=== PATIENT | female | born 2000 | race Hispanic/Latino ===

== ENCOUNTER 2020-11-02 18:42 | Observation (INO) | payer BC, SELFPAY ==
--- NOTE | ~2020-11-02 | CT_ITS ---
EXAMINATION: CT abdomen pelvis w con EXAM DATE: 11/02/2020 19:42 INDICATION: abd pain. TECHNIQUE: Spiral CT of the abdomen and pelvis was performed following intravenous injection of 100 m L Omnipaque 350. Axial, coronal and sagittal images were reviewed. The dose-length product (DLP) fo r this examination was 1585.31 mGy-cm. The exposure was tailored according to patient size (auto mA exposure control), and iterative reconstruction (ASIR) was used as additional dose reduction techniqu e. There is no prior study for comparison. FINDINGS: The liver, spleen, adrenal glands and pancreas are unremarkable. Gallbladder is unremarkab le. No biliary obstruction. Portal and splenic veins are patent. Kidneys enhance symmetrically. T here is no hydronephrosis. The uterus is unremarkable. The bladder is unremarkable. There is no retroperitoneal or pelvic lymphadenopathy. Tubular structure appears to be appendix arising from the cecal base measuring 1.2 cm maximal diamete r with mild adjacent fat stranding. Probable acute uncomplicated appendicitis. No appendicolith or fl uid identified within the appendix. The stomach and small bowel are unremarkable. There is expected amount of colonic stool. No free i ntraperitoneal gas. The heart is normal in size. There are no pericardial or pleural effusions. T he lung bases are unremarkable. There are no osteoblastic or osteolytic lesions identified. 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 IMPRESSION: 1. Probable acute uncomplicated appendicitis. Reviewed, dictated and finalized at location A. ERATIVE EDUCATION DIRECTOR
[2020-11-02 18:46] VITALS: BP 145/97; PULSE 89; RESP 16; TEMP 36.3; O2SAT 100
--- NOTE | 2020-11-02 19:01 | ED.GENADULT ---
HPI - General Adult General Chief complaint: Abdominal Pain Stated complaint: stomach pain for two days Time Seen by Provider: 11/02/20 18:49 Source: RN notes reviewed History of Present Illness HPI narrative: Patient presents to emergency department from home for abdominal pain. Patient states pain began yesterday's initially located diffusely throughout the abdomen is now located in the right lower and upper quadrant described as aching in nature associated nausea vomiting and diarrhea. States she last took pain medication approximately 9 this morning she denies any fever chills chest pain shortness of breath or any other symptoms denies any chance of Related Data Home Medications Medication Instructions Recorded Confirmed No Home Medications 11/02/20 11/02/20 Allergies Allergy/AdvReac Type Severity Reaction Status Date / Time codeine AdvReac Mild NAUSEA Verified 11/02/20 18:55 Review of Systems Review of Systems: Narrative: Gen.: Denies fevers or chills ENT: Denies congestion Respiratory: Denies shortness of breath or cough CV: Denies chest pain or palpitations GI: See HPI denies burning, urgency, frequency or hematuria Musculoskeletal: Denies back pain or muscle pain Neuro: Denies numbness, tingling, weakness or focal weakness Skin: Denies rash Except as documented, all other systems reviewed and negative PMFSH Past Medical History Medical History (Updated 11/02/20 @ 20:31 by Alexx Velásquez DO) Anxiety Patient denies significant medical history Social History Social History (Updated 11/02/20 @ 19:02 by Alexx Velásquez DO) Smoking status: Never smoker Gender identity (if verbalized by the patient): Female Exam Narrative: Exam Narrative: APPEARANCE: No acute distress, nontoxic, resting in bed EYES: EOMI HEENT: Normocephalic, atraumatic, OMM RESPIRATORY: No respiratory distress Clear to auscultation bilaterally with no rhonchi wheezing or rales. CARDIOVASCULAR: Regular rate and rhythm without murmurs rubs or gallops. ABDOMINAL: Soft, nondistended tender palpation right upper quadrant right lower quadrant no tenderness left upper quadrant left lower quadrant no rebound or guarding MUSCULOSKELETAl: Moves all extremities. No clubbing, cyanosis or edema. NEURO: Awake and alert. Following commands, speech normal, no focal deficits SKIN:: Warm, dry. No rashes lesions or abrasions PSYCHIATRIC: Normal affect/mood, Course Course Emergency Course: Called and discussed with Dr. Lombardo presentation work-up agrees with admission to his service with patient started on Zosyn at this time plan for OR tomorrow Discussed with patient and family results of workup and diagnosis. Discussed need for admission. Patient and family understand and agree to current treatment plan Vital Signs Vital signs: Vital Signs Temperature 97.4 F L 11/02/20 18:46 Pulse Rate 89 11/02/20 18:46 Respiratory Rate 16 11/02/20 18:46 Blood Pressure 145/97 H 11/02/20 18:46 Pulse Oximetry 100 11/02/20 18:46 Temperature 97.4 F L 11/02/20 18:46 Pulse Rate 89 11/02/20 18:46 Respiratory Rate 16 11/02/20 18:46 Blood Pressure 145/97 H 11/02/20 18:46 Pulse Oximetry 100 11/02/20 18:46 Medical Decision Making Vital Signs Vital Signs: Vital Signs Temperature 97.4 F L 11/02/20 18:46 Pulse Rate 89 11/02/20 18:46 Respiratory Rate 16 11/02/20 18:46 Blood Pressure 145/97 H 11/02/20 18:46 Pulse Oximetry 100 11/02/20 18:46 Temperature 97.4 F L 11/02/20 18:46 Pulse Rate 89 11/02/20 18:46 Respiratory Rate 16 11/02/20 18:46 Blood Pressure 145/97 H 11/02/20 18:46 Pulse Oximetry 100 11/02/20 18:46 Lab Data Result diagrams: 11/02/20 18:58 11/02/20 18:58 Labs: Lab Results 11/02/20 11/02/20 11/02/20 Range/Units 18:58 18:58 18:58 WBC 19.3 H (4.5-10.0) K/mm3 RBC 4.97 (4.2-5.4) M/mm3 Hgb 15.3 H (12.0-15.0) g/dL Hct
[2020-11-02 19:03] LABS: Basophils Percent Auto 0.2 % (0.2-1.2); Eosinophils Percent Auto 0.2 % (0-4.4); Hemoglobin 15.3 g/dL (12.0-15.0); Immature Granulocyte Absolute 0.09 K/mm3 (0.00-0.031); Immature Granulocyte Percent A 0.5 % (0-0.5); Lymphocytes Absolute Auto 3.74 K/mm3 (0.9-3.2); Lymphocytes Percent Auto 19.4 % (18.3-44.2); Mean Corpuscular Hemoglobin 30.8 pg (26-34); Mean Corpuscular Volume 90.5 fl (80-100); Mean Platelet Volume 10.8 fl (7.4-10.4); Monocytes Percent Auto 5.3 % (2.6-8.5); Neutrophils Absolute Auto 14.4 K/mm3 (1.3-6.7); Neutrophils Percent Auto 74.4 % (45.5-73.1); Platelet Count Result 276 k/mm3 (150-375); Red Blood Count 4.97 M/mm3 (4.2-5.4); Red Cell Distribution Width 12.3 % (11.5-14.5); White Blood Count 19.3 K/mm3 (4.5-10.0)
[2020-11-02] MEDS: SODIUM CHLORIDE 0.9% IV 1,000 ML 999 ML IV CONT (19:06)
[2020-11-02] MEDS: KETOROLAC 30 MG/ML VIAL (*BKC) IV PUSH (19:06)
[2020-11-02 19:08] LABS: Add Urine Microscopic? YES; Appearance Urine Cloudy (Clear); Bacteria Urine Trace /hpf; Bilirubin Urine Negative (Negative); Blood Urine 1+ (Negative); Color Urine Yellow (Yellow); Glucose Urine UA Negative (Negative); Ketones Urine 1+ mg/dL (Negative); Leukocyte Esterase Ur 2+ LEU/UL (Negative); Mucus Urine Few /lpf; Nitrate Urine Negative (Negative); Protein Urine 2+ mg/dL (Negative); Squamous Epithelial Cell Urine Many /hpf (Few)
[2020-11-02 19:15] LABS: Alanine Aminotransferase 16 U/L (4-35); Albumin Level 4.4 g/dL (3.5-5.1); Alkaline Phosphatase 86 U/L (38-126); Anion Gap 9 mmol/L (8-16); Aspartate Amino Transferase 23 U/L (14-36); Bilirubin,Total 0.5 mg/dL (0.2-1.3); Blood Urea Nitrogen 9 mg/dL (7-17); Calcium 9.7 mg/dL (8.4-10.2); Carbon Dioxide 29 mmol/L (22-30); Chloride 103 mmol/L (98-107); Estimated CRCL calculation 161 ml/min; Estimated Glomerular Filt Rate > 60; Glucose 94 mg/dL (65-105); Lipase 65 U/L (23-300); Potassium 3.9 mmol/L (3.4-5.0); Sodium 141 mmol/L (137-145)
[2020-11-02 20:00] VITALS: BP 132/81; PULSE 71; RESP 16; O2SAT 100
[2020-11-02 20:28] VITALS: O2SAT 95
--- NOTE | 2020-11-02 20:28 | WPDANESEPP ---
Anes - Eval Pre Procedure Procedure: Lap Appy Date/Time: 11/02/20 20:28 Surgeon: Munira Preop Diagnosis: Acute appendicitis Pre Op Diagnosis: stomach pain for two days Patient Data Age: 20 Gender: F Height: 5 ft 5 in Weight: 145.2 kg Last Vital Signs Temp 97.4 F L 11/02/20 18:46 Pulse 89 11/02/20 18:46 Resp 16 11/02/20 18:46 BP 145/97 H 11/02/20 18:46 Pulse Ox 100 11/02/20 18:46 Allergies Allergy/AdvReac Type Severity Reaction Status Date / Time codeine AdvReac Mild NAUSEA Verified 11/02/20 18:55 Home Medications Medication Instructions Recorded Confirmed Type No Home Medications 11/02/20 11/02/20 History Laboratory Tests 11/02/20 11/02/20 11/02/20 18:58 18:58 18:58 WBC 19.3 K/mm3 H K/mm3 (4.5-10.0) RBC 4.97 M/mm3 M/mm3 (4.2-5.4) Hgb 15.3 g/dL H g/dL (12.0-15.0) Hct 45.0 % % (37.0-47.0) MCV 90.5 fl fl (80-100) MCH 30.8 pg pg (26-34) MCHC 34.0 g/dl g/dl (32-36) RDW 12.3 % % (11.5-14.5) Plt Count 276 k/mm3 k/mm3 (150-375) MPV 10.8 fl H fl (7.4-10.4) Immature Gran % (Auto) 0.5 % % (0-0.5) Neut % (Auto) 74.4 % H % (45.5-73.1) Lymph % (Auto) 19.4 % % (18.3-44.2) Chilton % (Auto) 5.3 % % (2.6-8.5) Eos % (Auto) 0.2 % % (0-4.4) Baso % (Auto) 0.2 % % (0.2-1.2) Lymph # (Auto) 3.74 K/mm3 H K/mm3 (0.9-3.2) Chilton # (Auto) 1.0 K/mm3 H K/mm3 (0.1-0.6) Eos # (Auto) 0.0 K/mm3 K/mm3 (0-0.3) Baso # (Auto) 0.0 K/mm3 K/mm3 (0.0-0.1) Abs Immat Gran (auto) 0.09 K/mm3 H K/mm3 (0.00-0.031) Absolute Neuts (auto) 14.4 K/mm3 H K/mm3 (1.3-6.7) Absolute Nucleated RBC 0.0 K/mm3 K/mm3 (0.0-0.012) Nucleated RBC % 0.0 % % (0.0-0.2) Sodium 141 mmol/L mmol/L (137-145) Potassium 3.9 mmol/L mmol/L (3.4-5.0) Chloride 103 mmol/L mmol/L (98-107) Carbon Dioxide 29 mmol/L mmol/L (22-30) Anion Gap 9 mmol/L mmol/L (8-16) BUN 9 mg/dL mg/dL (7-17) Creatinine 0.70 mg/dL mg/dL (0.7-1.0) Estim Creat Clear Calc 161 ml/min ml/min Estimated GFR > 60 (59 - ) Glucose 94 mg/dL mg/dL (65-105) Calcium 9.7 mg/dL mg/dL (8.4-10.2) Total Bilirubin 0.5 mg/dL mg/dL (0.2-1.3) AST 23 U/L U/L (14-36) ALT 16 U/L U/L (4-35) Alkaline Phosphatase 86 U/L U/L (38-126) Total Protein 9.0 g/dL H g/dL (6.3-8.2) Albumin 4.4 g/dL g/dL (3.5-5.1) Lipase 65 U/L U/L (23-300) Urine Color Yellow (Yellow) Urine Appearance Cloudy H (Clear) Urine pH 5.0 (5.0-9.0) Ur Specific Eucha 1.030 (1.001-1.035) Urine Protein 2+ mg/dL H mg/dL (Negative) Urine Glucose (UA) Negative mg/dL mg/dL (Negative) Urine Ketones 1+ mg/dL H mg/dL (Negative) Ur Blood (Man) 1+ H (Negative) Urine Nitrate Negative (Negative) Urine Bilirubin Negative (Negative) Urine Urobilinogen 2.0 mg/dL H mg/dL (<2.0) Leukocyte Esterase Rfl 2+ LUH/UL H LUH/UL (Negative) Urine RBC 3-5 /hpf H /hpf (0-2) Urine WBC 10-15 /hpf H /hpf Ur Squamous Epith Cells Many /hpf H /hpf (Few) Urine Bacteria Trace /hpf /hpf Urine Mucus Few /lpf H /lpf Patient hx anesthesia problems: none Family hx anesthesia problems: none PMFSH Past Medical History Medical History (Updated 11/02/20 @ 20:29 by Eric Swain CRNA) Anxiety Patient denies significant medical history Social History Social History (Updated 11/02/20 @ 19:02 by Alxex Velásquez, ) Smoking status: Never smoker Gender identity (if verbalized by the patient): F
[2020-11-02 21:30] VITALS: BP 129/83; PULSE 53; RESP 18; O2SAT 100
[2020-11-02] MEDS: MORPHINE SULFATE (*CRX) 4 MG/ML INJ IV PUSH ×2 (21:48→23:54)
--- NOTE | 2020-11-02 22:24 | ADMGEN ---
This patient, Catie Molina, was admitted to 2 Medical Room 257-01. Patient/family oriented to hospital policies and general routines including ID bracelet, bed and alarms, visiting hours, pain management, procedures, bathroom and other care routines, personal items, smoking policy, room service/diet, and visiting hours. Information on how to activate the Rapid Response Team has been discussed. Patient/Family are encouraged to report perceived risks to care and to ask questions if they do not understand what they are told or what they should do.
[2020-11-02 22:45] VITALS: BP 107/60; PULSE 56; RESP 20; TEMP 36.3; O2SAT 99; BMI 53.1
[2020-11-02] MEDS: SODIUM CHLORIDE 0.9% IV 1,000 ML 125 ML IV CONT (22:58)
[2020-11-03] VITALS (12 sets, daily range): BP systolic 89–130; BP diastolic 51–90; PULSE 54–104; RESP 13–20; TEMP 36.1–36.8; O2SAT 91–100
[2020-11-03 05:46] LABS: Basophils Percent Auto 0.3 % (0.2-1.2); Eosinophils Absolute Auto 0.1 K/mm3 (0-0.3); Eosinophils Percent Auto 1.2 % (0-4.4); Hematocrit 39.4 % (37.0-47.0); Hemoglobin 13.2 g/dL (12.0-15.0); Immature Granulocyte Absolute 0.05 K/mm3 (0.00-0.031); Immature Granulocyte Percent A 0.4 % (0-0.5); Lymphocytes Absolute Auto 2.57 K/mm3 (0.9-3.2); Lymphocytes Percent Auto 21.9 % (18.3-44.2); Mean Corpuscular HGB Conc 33.5 g/dl (32-36); Mean Corpuscular Hemoglobin 30.4 pg (26-34); Mean Corpuscular Volume 90.8 fl (80-100); Mean Platelet Volume 10.9 fl (7.4-10.4); Monocytes Percent Auto 8.5 % (2.6-8.5); Neutrophils Absolute Auto 7.9 K/mm3 (1.3-6.7); Neutrophils Percent Auto 67.7 % (45.5-73.1); Platelet Count Result 239 k/mm3 (150-375); Red Blood Count 4.34 M/mm3 (4.2-5.4); Red Cell Distribution Width 12.3 % (11.5-14.5); White Blood Count 11.7 K/mm3 (4.5-10.0)
[2020-11-03] MEDS: SODIUM CHLORIDE 0.9% IV 1,000 ML 125 ML IV CONT (07:25)
[2020-11-03 08:40] LABS: Anion Gap 5 mmol/L (8-16); Blood Urea Nitrogen 9 mg/dL (7-17); Calcium 8.7 mg/dL (8.4-10.2); Carbon Dioxide 30 mmol/L (22-30); Chloride 105 mmol/L (98-107); Estimated CRCL calculation 155 ml/min; Estimated Glomerular Filt Rate > 60; Glucose 80 mg/dL (65-105); Potassium 3.8 mmol/L (3.4-5.0); Sodium 140 mmol/L (137-145)
[2020-11-03] MEDS: LACTATED RINGERS 1,000 ML 30 ML IV CONT ×2 (11:18→13:18)
--- NOTE | 2020-11-03 11:47 | PM.IMHP ---
H&P: HPI History of Present Illness Date/Time: 11/03/20 11:47 Chief complaint: appendicitis Narrative: Catie Molina is a 20 year old female who presented to the emergency department last night with right lower quadrant pain. She states that about 2 days ago she began experiencing some generalized cramping abdominal pain. This then localized to the right lower quadrant. She was experiencing some nausea and vomiting as well. She denies any change in bowel habits. She has never experienced symptoms like this in the past. Review of Systems Review of Systems: All systems reviewed & are unremarkable except as noted in HPI and below Constitutional: Constitutional: Denies chills and Denies fever(s) Eyes: Eyes: Denies change in vision ENT: Denies hearing loss, Denies neck pain and Denies sore throat Cardiovascular: Cardiovascular: Denies chest pain and Denies dyspnea Respiratory: Respiratory: Denies cough, Denies dyspnea and Denies wheezing Gastrointestinal: Gastrointestinal: Reports as per HPI Genitourinary: Genitourinary: Denies hematuria and Denies dysuria Musculoskeletal: Musculoskeletal: Denies arthralgias, Denies joint swelling and Denies neck pain Allergic/Immunologic: Allergic/Immunologic: Denies wheezing PMFSH Past Medical History Medical History Anxiety Patient denies significant medical history Family History Family History Sibling Asthma Grandparent Diabetes mellitus Grandparent History of blood clots Mother Hypertension Grandparent Hypertension Other Prostate carcinoma Social History Social History Smoking status: Never smoker Alcohol intake: never Substance use: never Substance use type: does not use Gender identity (if verbalized by the patient): Female Spiritual care concerns: No Meds Home Medications and Allergies Home Medications Medication Instructions Recorded Confirmed Type No Home Medications 11/02/20 11/02/20 History Allergies Allergy/AdvReac Type Severity Reaction Status Date / Time codeine AdvReac Mild NAUSEA Verified 11/02/20 18:55 Vital Signs Vital Signs - 24 hr 11/02/20 18:46 11/02/20 20:00 11/02/20 21:30 Temperature 36.3 C L Pulse Rate 89 71 53 L Respiratory Rate 16 16 18 Blood Pressure 145/97 H 132/81 129/83 Pulse Oximetry 100 100 100 11/02/20 22:45 11/03/20 06:00 11/03/20 10:48 Temperature 36.3 C L 36.2 C L 36.5 C Pulse Rate 56 L 54 L 70 Respiratory Rate 20 20 18 Blood Pressure 107/60 105/61 130/90 Pulse Oximetry 99 98 100 Exam Const: General: alert; No acute distress Orientation/consciousness: patient oriented x3 Limitations: no limitations HENMT: Head: normocephalic and atraumatic Ears: hearing grossly normal bilaterally General nose exam: Normal external nose present and Normal nares present Mouth: Yes Normal oral and palatal mucosa present and Yes moist mucous membranes Eyes: General: appearance normal, both eyes and all related structures Conjunctivae: conjunctivae normal Sclera: sclerae normal Pupils: Equal, round and reactive pupils present EOM: EOMs intact bilaterally Neck: Neck: normal visual inspection, full ROM, no lymphadenopathy, supple and no JVD Lymphatic: no lymphadenopathy noted Chest: Chest palpation & inspection: normal inspection of the chest Resp: Effort & Inspection: normal respiratory effort and able to speak in complete sentences Auscultation: clear to auscultation bilaterally Percussion: percussion normal Cardio: Jugular venous distension: no JVD Rate: regular rate Rhythm: regular rhythm Heart sounds: S1 normal heart sound present and S2 normal heart sound present Peripheral pulses: Peripheral pulses 2+ throughout GI: Inspection: normal to inspection and obesity GI Palp: Yes abdominal tenderness, Yes
--- NOTE | 2020-11-03 11:51 | WPDHPUPDATE1 ---
History and Physical Update Update Date/Time: 11/03/20 11:51 History and Physical has been reviewed, including an updated exam of the patient. There are NO changes in the patient's condition. Risks, benefits, and alternatives have been discussed and questions answered. Patient agrees to proceed with procedure.
--- NOTE | 2020-11-03 11:56 | SUR.PREOP ---
Up to bathroom.
--- NOTE | 2020-11-03 11:58 | WPDANESEFPP ---
Anes - Eval Final PreProcedure Day of Procedure 11/03/20 11:58 Patient weight: super morbidly obese Heart: regular rate and rhythm Lungs: clear to auscultation and normal air movement Airway: Mallampati scale class II Neurological: alert and oriented Last oral intake: >/= 8 hours ASA classification: III Emergent: no Anesthetic plan: proceed Anesthesia type and monitoring: general ETT and standard monitoring Informed Consent: The patient's anesthetic plan and its attendant risks and benefits were discussed with the patient/family/POA. Questions were solicited and answers provided to the satisfaction of the patient/family/POA.
--- NOTE | 2020-11-03 13:08 | PM.PROC ---
Procedure Note - Detailed Date of procedure: 11/03/20 Pre-op diagnosis: Acute appendicitis Post-op diagnosis: same Procedure performed: Laparoscopic Appendectomy Description of procedure: Procedure as well as risks, benefits, and alternatives were explained to the patient. The patient agreed to proceed. Written consent was obtained and placed in chart prior to procedure. The patient was brought back to surgical suite. She was placed supine on operating table. Time-out was done to confirm the patient and procedure. The patient was then intubated by the Anesthesia Department. Her abdomen was prepped and draped in sterile fashion using chlorhexidine prep. A 5 mm incision was made just to the left of the patient's umbilicus and a 5 mm Optiview trocar was advanced through the abdominal layers under direct visualization. Once inside the peritoneal cavity, carbon dioxide insufflation was used to create a pneumoperitoneum. The camera was inserted and the abdomen was inspected. No immediate abnormalities were identified. The patient was then placed in slight Trendelenburg position and rotated to the left. A 5 mm incision was made in the suprapubic region in midline and a 5 mm trocar was inserted under direct visualization. A 12 mm incision was made in the left lower quadrant and a 12 mm trocar was inserted under direct visualization. The right lower quadrant was carefully inspected. The cecum was identified and then this was traced back to the appendix. The appendix was identified and grasped at the mesoappendix and lifted anteriorly. Careful blunt dissection was carried out at the base of the appendix through the mesoappendix using a [place] grasper. An Endo-GENEVIEVE 45 mm blue load stapler was then advanced across the base of the appendix and clamped and fired. A white reload was then clamped across the mesoappendix and fired. This freed up our appendix completely. It was then placed in an EndoCatch bag and removed through the left lower quadrant port. The staple lines were then inspected. Hemostasis appeared adequate and the staple lines appeared secure. The area was then irrigated with sterile saline. The pelvis was then carefully inspected and irrigated with sterile saline as well and the remainder of the abdomen was carefully inspected. The patient was then flattened out in bed. One final inspection was made around the abdominal cavity and no other abnormalities were seen. The left lower quadrant port was removed and a Anshul-Danielito cone was used to approximate the fascia with a 0 Vicryl simple interrupted suture. The remaining ports were then removed under direct visualization. The camera was removed and the pneumoperitoneum was released. 0.5% bupivacaine with epinephrine was infiltrated locally around each of the incisions. The skin of the incisions was then approximated using 4-0 Monocryl subcuticular suture and Exofin glue was applied on top. The patient was then awakened from anesthesia, extubated, and transferred to Recovery. Anesthesia: GETA and local (0.5% bupivicaine with epi) Surgeon: Mil Lombardo DO Estimated blood loss (mL): 10 Pathology: yes (Appendix) Complications: No immediate complications Condition: stable Disposition: floor Findings: This is a 20-year-old woman who presented to the emergency department last night with complaints of right lower quadrant abdominal pain for the past couple days. She was noted to have an elevated white blood count, and CT of her abdomen and pelvis showed evidence of acute appendicitis. Discussions were made with the patient about treatment options decision was made to proceed with urgent laparoscopic appendectomy, possible open. She was started on Zosyn in the emergency department. Laparoscopic appendectomy was performed. The appendix appeared dilated and inflamed but there was no evidence perforation or abscess. The remainder of the abdomen appeared normal. The patient is morbidly obese a
[2020-11-03] MEDS: fentaNYL CITRATE INJ (*CRX) 100 MCG/2 ML VIAL 25 MCG IV PUSH ×4 (13:27→13:50)
[2020-11-03] MEDS: HYDROcodone/acetaminophen (*CRX) 7.5-325 MG TABLET 1 TAB PO ×2 (14:41→19:56)
[2020-11-03] MEDS: MORPHINE SULFATE (*CRX) 2 MG/ML INJ IV PUSH (17:18)
[2020-11-03] MEDS: IBUPROFEN 600 MG TABLET PO (23:24)
[2020-11-04] MEDS: HYDROcodone/acetaminophen (*CRX) 7.5-325 MG TABLET 1 TAB PO (01:01)
[2020-11-04 06:00] VITALS: BP 109/54; PULSE 53; RESP 20; TEMP 36.1; O2SAT 98
[2020-11-04] MEDS: HYDROcodone/acetaminophen (*CRX) 5-325 MG TABLET 1 TAB PO (06:25)
--- NOTE | 2020-11-04 09:00 | PM.DS ---
DS: Admitting Diagnosis Admitting Diagnosis Admitting Diagnosis: Acute appendicitis DS: Discharge Diagnosis Discharge Diagnosis (1) Acute appendicitis: Qualifiers: Acute appendicitis type: with localized peritonitis Appendicitis abscess presence: unspecified whether abscess present Appendicitis gangrene presence: unspecified whether gangrene present Appendicitis perforation presence: unspecified whether perforation present Qualified Code(s): K35.30 - Acute appendicitis with localized peritonitis, without perforation or gangrene Code(s): K35.80 - Unspecified acute appendicitis Status: Acute (2) BMI 50.0-59.9, adult: Code(s): Z68.43 - Body mass index [BMI] 50.0-59.9, adult Status: Acute DS: Summary Hospital Course Reason for hospitalization: acute appendicitis Hospital Course: this is a 20-year-old woman who presented to the emergency department on 11/02/2020 with right lower quadrant abdominal pain. Workup in the emergency department showed evidence of acute appendicitis. She was started on IV Zosyn and was admitted to the hospital. On 11/03/2020 she underwent laparoscopic appendectomy. Surgery was uncomplicated and she was returned to the surgical floor postoperatively. Her diet and activity were gradually advanced as tolerated. Pain was difficult to control initially on 11/03, but on postop day 1 she was feeling much better. Her pain was well controlled and she was ambulating without much difficulty. She was discharged on 11/04. Status at Discharge Functional status at discharge: independent ambulation Overall status at discharge: patient is progressing back to baseline Time Spent with Patient Time attestation: Total time spent providing and/or coordinating discharge services: Time spent: Less than 30 minutes Exam GI: Inspection: incision ( Intact with glue) DS: Data Data Completed and Pending Completed studies during hospitalization: Pending at discharge 11/03/20 12:37 Surgical [PTH] Routine Imaging Radiologist's impression: ITS Impressions Abdomen/Pelvis CT 11/02/20 19:53 IMPRESSION: 1. Probable acute uncomplicated appendicitis. Discharge Plan Discharge Attending physician on discharge: Mil Le Consulting providers: Marcelo Liz Discharging Clinician: Mil Le Anticipated Discharge Date/Time: 11/03/20 16:00 Patient Disposition: Home, Self-Care Activity: other - see discharge instructions Diet: other - see discharge instructions Wound Care Instructions: other - see discharge instructions Discharge Instructions: DISCHARGE INSTRUCTION SHEET FOR HERNIA, GALLBLADDER AND APPENDIX SURGERIES DR. LE PATIENT TO TAKE HOME 1. May shower in 24 hours, no soaking in bath x 2weeks. 2. Call office for: Wound increasingly painful or bleeding Vomiting Fever of greater than 101 degrees 3. If no bowel movement for three days, take 1 oz. (30 ml) Milk of Magnesia or MiraLax 17g 1 to 2 times daily. 4. No heavy lifting > 10-15 pounds for 2 weeks. 5. No driving for 3 days or while taking narcotic pain medications. 6. Ice to surgical site for 48 hours (30 min on, then 30 min off). 7. Up walking 10-30 minutes three times per day. 8. Resume previous home medications. 9. Follow-up 10-14 days in office for wound check or as previously scheduled. ([phone]) 10. Oral pain medications prescription to be sent to pharmacy. Take Tylenol 500mg every 6 hours and Ibuprofen 600mg every 6 hours for the first 2 days, then as needed. 11. NUTRITION: Start out by drinking fluids and increase your diet as tolerated. If you experience nausea, try dry toast, crackers, and 7-UP. If nausea or vomiting persists, contact your surgeon?s office.
== END 2020-11-04 10:36 | disposition home or self-care (01) ==
LOC: ANHED 20:31 → ANH2MED 21:44
PROVIDERS: Admitting Provider Surgery; Emergency Provider Emergency Medicine; Visit Provider Surgery
PROC: 0DTJ4ZZ Resection of Appendix, Percutaneous Endoscopic Approach (ICD-10-PCS; CPT 44970; principal; 2020-11-03 12:30)
DX: K35.80 Unspecified acute appendicitis (principal); E66.01 Morbid (severe) obesity due to excess calories; Z68.43 Body mass index [BMI] 50.0-59.9, adult
CPT/HCPCS: 44970; 36415; 74177; 80048; 80053; 81001; 81025; 83690; 85025; 87086; 87088; 88304; 96361; 96365; 96375; 96376; 99285; A9270; G0378; J0330; J1100; J1885; J2270; J2405; J2543; J2704; J3010; J7030; J7120; Q9967

== ENCOUNTER 2022-09-18 08:41 | Emergency (ER) | payer BC, SELFPAY ==
--- NOTE | 2022-09-18 08:44 | ED.SKABFB ---
HPI - Skin/Abscess/Foreign Bdy General Chief complaint: Skin/Abscess/Foreign Body Stated complaint: Bump on Back of Neck Time Seen by Provider: 09/18/22 08:43 Source: patient Mode of arrival: ambulatory Limitations: no limitations History of Present Illness HPI narrative: Catie is a 22-year-old female patient presenting to clinic today with complaints of a bump on the back of her neck x 1-2 weeks. She reports that the bump is becoming bigger and more painful. She is having problems with turning her neck side to side due to the discomfort. She denies any fever or chills. Related Data Allergies Allergy/AdvReac Type Severity Reaction Status Date / Time codeine AdvReac Mild NAUSEA Verified 11/17/20 09:45 Review of Systems Review of Systems: Pertinent positives per HPI. Patient denies any fever, chills, rash, headache, visual changes, dizziness, cough, runny nose, sore throat, shortness of breath, chest pain, palpitations, nausea, vomiting, diarrhea, constipation, abdominal pain, or any urinary issues. PMFSH Past Medical History Medical History Anxiety Patient denies significant medical history Surgical History Surgical History History of laparoscopic appendectomy 11/03/20 Family History Family History Sibling Asthma Grandparent Diabetes mellitus Grandparent History of blood clots Mother Hypertension Grandparent Hypertension Other Prostate carcinoma Social History Social History Smoking status: Never smoker Alcohol intake: never Substance use: never Substance use type: does not use Gender identity (if verbalized by the patient): Female Spiritual care concerns: No Comments At the time of my signature, I reviewed and agree with the nursing past medical, surgical, social, and family history. There is no relevant family history pertinent to the patient complaint. Exam Narrative: General: Well-developed, morbidly obese, in no apparent distress Head: Normocephalic, atraumatic. Cardio: Regular rate and rhythm, s1 and s2 normal, no murmur appreciated. Resp: Clear to auscultation bilaterally, no rhonchi, rales, wheezing or rubs. Integumentary: [place], warm, and dry, 6 x 3 cm fluctuant abscess to the base of the posterior neck- redness and swelling visualized and very tender to palpation Course Course Emergency Course: Portions of this record may have been created with voice recognition software. Level of Care: Express Care Visit Vital Signs Vital signs: Vital Signs Temperature 36.6 C 09/18/22 08:53 Pulse Rate 73 09/18/22 08:53 Respiratory Rate 16 09/18/22 08:53 Blood Pressure 130/91 H 09/18/22 08:53 Pulse Oximetry 99 09/18/22 08:53 Oxygen Delivery Room Air 09/18/22 08:53 Temperature 36.6 C 09/18/22 08:53 Pulse Rate 73 09/18/22 08:53 Respiratory Rate 16 09/18/22 08:53 Blood Pressure 130/91 H 09/18/22 08:53 Pulse Oximetry 99 09/18/22 08:53 Oxygen Delivery Room Air 09/18/22 08:53 Vital signs reviewed Procedures Abscess I/D neck: Date of Incision: 09/18/22 Time of Incision: 09:00 Local Anesthetic: lidocaine 1% and with epi Amount of anesthesia used (mL): 2 Technique: incised with #11 blade and probed loculations Amount of fluid expressed (mL): 10 Irrigation: Yes Packing used?: iodoform ( quarter inch) I&D Results: Pus and Blood Abcess I&D Additional Comments: Verbal consent obtained for incision and drainage. Risk and benefits explained and patient voiced understanding. Area was cleansed with betadine. Area was prepped and draped using sterile technique. 25 gauge needle was then used to instill (2) ml of lidocaine with epi into the
[2022-09-18 08:53] VITALS: BP 130/91; PULSE 73; RESP 16; TEMP 36.6; O2SAT 99
== END 2022-09-18 09:26 | disposition home or self-care (01) ==
LOC: EXPCOLL 08:46
PROVIDERS: Emergency Provider Nurse Practitioner Family
DX: L02.11 Cutaneous abscess of neck (principal)
CPT/HCPCS: 10061; 87070; 87075; 87076; 87077; 87185; 87205; 99213; G0463

== ENCOUNTER 2023-10-18 13:44 | Emergency (ER) | payer BC, SELFPAY ==
[2023-10-18 13:54] VITALS: BP 121/92; PULSE 78; RESP 18; TEMP 36.4; O2SAT 98
[2023-10-18 13:55] VITALS: BP 121/92; PULSE 78; RESP 18; TEMP 36.4; O2SAT 98
--- NOTE | 2023-10-18 14:05 | ED.ABDPAIN ---
HPI - Abdominal Pain General Chief Complaint: Abdominal Pain Stated Complaint: Abdominal Pain Time Seen by Provider: 10/18/23 14:06 Source: patient and RN notes reviewed Mode of arrival: ambulatory Limitations: no limitations History of Present Illness HPI narrative: 23 y/o female presented for c/o diarrhea for 2 days. Reports abdominal cramping and frequent episodes of diarrhea. Symptoms worsened last night, stating she had cramping throughout the night. Only 2 episodes of diarrhea today, and stools are becoming more formed. Pt reports chronic frequent morning vomiting of mucous, and denies any change to vomiting. Reports normal po intake. Currently denies abdominal cramping or nausea, urinary complaints, fever or chills. Not taking anything for symptoms. Related Data Home Medications Medication Instructions Recorded Confirmed No Home Medications 10/18/23 10/18/23 Allergies Allergy/AdvReac Type Severity Reaction Status Date / Time codeine AdvReac Mild NAUSEA Verified 10/18/23 13:55 Review of Systems Review of Systems: CONSTITUTIONAL: Denies body aches, fever, chills ENT: Denies rhinorrhea, congestion CARDIOVASCULAR: Denies chest pain, palpitations, or edema. RESPIRATORY: Denies cough or dyspnea. GASTROINTESTINAL: Endorses abdominal cramping nausea, diarrhea. Denies vomiting, hematochezia, melena, hematemesis GENITOURINARY: Denies dysuria, hematuria, or CVA tenderness. SKIN: Denies rash, itching, or wounds. MUSCULOSKELETAL: Denies back pain, joint pain, or myalgia. NEUROLOGIC: Denies headache, numbness, tingling, or weakness. All systems reviewed & are unremarkable except as noted in HPI and below PMFSH Past Medical History Medical History Anxiety Patient denies significant medical history Surgical History Surgical History History of laparoscopic appendectomy 11/03/20 Family History Family History Sibling Asthma Grandparent Diabetes mellitus Grandparent History of blood clots Mother Hypertension Grandparent Hypertension Other Prostate carcinoma Social History Social History Smoking status: Never smoker Alcohol intake: never Substance use: never Substance use type: does not use Gender identity (if verbalized by the patient): Female Spiritual care concerns: No Comments At time of signature, I have reviewed and agree with nursing past medical, surgical, social and family history unless otherwise noted. Please see nursing chart for further information. There is no relevant family history pertinent to the presenting complaint Exam Narrative: GENERAL: Well-appearing, and in no acute distress. EYES: EOMI. Conjunctivae normal. ENT: Mucous membranes pink and moist. CHEST: No respiratory distress. Clear to auscultation. HEART: Regular rate and rhythm. No murmur appreciated. Normal peripheral pulses. ABDOMEN: abd soft, large, nondistended, normal active bowel sounds. Tender abdomen to bilateral upper quadrants and epigastric area; No guarding, rebound tenderness, asymmetry or rigidity. No discoloration. Exam limited due to body habitus. EXTREMITIES: Normal range of motion. No edema. SKIN: Warm, dry, no rash. Capillary refill normal. Normal skin turgor. NEURO: No focal deficits. Alert and oriented x3. PSYCH: Normal affect. Course Course Emergency Course: Patient is aware of diagnosis, understands and agrees to treatment plan. Anticipatory guidance given. Patient agrees to follow-up as directed and is aware of reasons to seek care at the emergency department. Portions of this record may have been created with voice recognition software Level of Care: Express Care Visit Vital Signs Vital signs: Vital Signs Temperature 97.6 F 10/18/
== END 2023-10-18 14:30 | disposition home or self-care (01) ==
PROVIDERS: Emergency Provider Nurse Practitioner Family
DX: R19.7 Diarrhea, unspecified (principal)
CPT/HCPCS: 99213; G0463

== ENCOUNTER 2024-05-31 00:59 | Emergency (ER) | payer BC, SELFPAY ==
[2024-05-31 01:00] VITALS: BP 149/78; PULSE 78; RESP 18; TEMP 36.1; O2SAT 100
--- NOTE | 2024-05-31 01:51 | ED.EAR ---
HPI - Ear Problem General Chief complaint: Ear Stated complaint: moth stuck in right ear Time Seen by Provider: 05/31/24 01:41 History of Present Illness HPI Narrative: Patient is a 24-year-old female who presents ER with a foreign body in her right ear. She reports she was fighting off when it flew into her ear. She tried your UA did home and it would not come out. No pain. Muffled hearing. Related Data Home Medications Medication Instructions Recorded Confirmed No Home Medications 10/18/23 10/18/23 Allergies Allergy/AdvReac Type Severity Reaction Status Date / Time codeine AdvReac Mild NAUSEA Verified 05/31/24 01:04 Review of Systems Constitutional: Constitutional: Reports no additional constitutional complaints ENT: Denies dizziness Comments: Foreign body right ear PMFSH Past Medical History Medical History Anxiety Patient denies significant medical history Surgical History Surgical History History of laparoscopic appendectomy 11/03/20 Family History Family History Sibling Asthma Grandparent Diabetes mellitus Grandparent History of blood clots Mother Hypertension Grandparent Hypertension Other Prostate carcinoma Social History Social History Smoking status: Never smoker Alcohol intake: never Substance use: never Substance use type: does not use Gender identity (if verbalized by the patient): Female Spiritual care concerns: No Exam Narrative: GENERAL: Well-appearing, well-nourished, and in no acute distress. HEAD: Normocephalic, atraumatic. ENT: Mucous membranes moist. insect right ear canal. After removal TM and intact. Ear canal normal without bleeding. EXTREMITIES: Normal range of motion. No edema. NEURO: Alert and oriented x3. PSYCH: Normal mood and affect. Course Course Emergency Course: Month removed. Discharge home. Vital Signs Vital signs: Vital Signs Temperature 97.0 F L 05/31/24 01:00 Pulse Rate 78 05/31/24 01:00 Respiratory Rate 18 05/31/24 01:00 Blood Pressure 149/78 H 05/31/24 01:00 Pulse Oximetry 100 05/31/24 01:00 Temperature 97.0 F L 05/31/24 01:00 Pulse Rate 78 05/31/24 01:00 Respiratory Rate 18 05/31/24 01:00 Blood Pressure 149/78 H 05/31/24 01:00 Pulse Oximetry 100 05/31/24 01:00 Procedures FB Removal Ear Foreign Body #1: Foreign Body Removal Date: 05/31/24 Foreign Body Removal Time: 01:53 Location: ear canal (R) Foreign Body Suspected: insect TM intact pre-procedure: yes Foreign Body Removed: yes Foreign Body Removal Technique: irrigation (then grabbed with alligator forceps.) Tympanic Membrane Intact Post Procedure: Yes Patient Tolerated Procedure: well Complications: none Medical Decision Making Vital Signs Vital Signs: Vital Signs Temperature 97.0 F L 05/31/24 01:00 Pulse Rate 78 05/31/24 01:00 Respiratory Rate 18 05/31/24 01:00 Blood Pressure 149/78 H 05/31/24 01:00 Pulse Oximetry 100 05/31/24 01:00 Temperature 97.0 F L 05/31/24 01:00 Pulse Rate 78 05/31/24 01:00 Respiratory Rate 18 05/31/24 01:00 Blood Pressure 149/78 H 05/31/24 01:00 Pulse Oximetry 100 05/31/24 01:00 Discharge Plan Discharge Clinical Impression: Ear foreign body Patient Disposition: Home, Self-Care Condition: Stable Instructions: Ear Foreign Body (ED) Additional Instructions: You had a moth removed from your ear tonight. Return to the ER if you have any additional issues. Prescriptions: No Action No Home Medications Follow-up/Referrals: PHYSICIAN,INCUBATOR TENDER [Primary Care Provider] -
[2024-05-31 01:55] VITALS: BP 144/90; PULSE 71; RESP 16; O2SAT 100
== END 2024-05-31 02:19 | disposition home or self-care (01) ==
LOC: ANHED 02:03
PROVIDERS: Emergency Provider Emergency Medicine; PCP Emergency Medicine
DX: T16.1XXA Foreign body in right ear, initial encounter (principal); W44.F4XA Insect entering into or through a natural orifice, initial encounter
CPT/HCPCS: 69200; 99282

== ENCOUNTER 2025-07-15 17:13 | Emergency (ER) | payer BC, SELFPAY ==
--- OUTSIDE RECORDS SUMMARY | 2005-10-06 08:15 | XMS_ITS | Continuity of Care Document ---
Author Organization [facility] Address [address] [place] [address] [address] [place] [address] Phone Care Team Providers Care Computer Forensics Investigator Name Role Phone Yahaira Ayala Unavailable Unavailable Advance Directives Directive Yes / No Effective Date File Name No Information Encounters Encounter Description Practice Location Reason(s) For Visit Diagnoses Date Provider Providers Copied on Encounter [facility], [address] [place] [address] [address], [place], [place], [id number], [place] tel:[phone] [facility] No Information [address] [facility] [address] , [address], [place], [address], [place]. tel:[phone] Family History Family Member Type Diagnosis Age At Onset No Information Payers Payer name Insurance type Covered libertarian ID Authoriza tion(s) Medicaid [facility] [id number] Social History Type Description Quantity Date Captured Comments Sex Female Smoking Status No Information Chief Complaint And Reason For Visit No Information Reason For Referral Reason For Referral No Information History Of Present Illness Encounter Date Complaint History Of Prese nt Illness No Information Functional Status Date Functional Assessmen t No Information Instructions Date Instruction Additional Infor mation No Information Assessments Type Assessment Date No Information Patient Care Teams Name Effective Dates (start - stop) Status Members No Information
--- OUTSIDE RECORDS SUMMARY | 2005-10-06 08:15 | XMS_ITS | Continuity of Care Document ---
Author Organization [facility] Address [address] [place] [address] [address] [place] [address] Phone Care Team Providers Care Clay Temperer Name Role Phone Yahaira Ayala Unavailable Unavailable Advance Directives Directive Yes / No Effective Date File Name No Information Encounters Encounter Description Practice Location Reason(s) For Visit Diagnoses Date Provider Providers Copied on Encounter [facility], [address] [place] [address] [address], [place], [place], [id number], [place] tel:[phone] [facility] No Information [address] [facility] [address] , [address], [place], [address], [place]. tel:[phone] Family History Family Member Type Diagnosis Age At Onset No Information Payers Payer name Insurance type Covered libertarian ID Authoriza tion(s) Medicaid [facility], [facility] [id number] Social History Type Description Quantity Date Captured [...]
--- NOTE | ~2025-07-15 | CT_ITS ---
EXAMINATION: CT abdomen pelvis w con DATE: 07/15/2025 19:54 INDICATION: Abdominal pain and vomiting TECHNIQUE: Computed tomography (CT) of the abdomen and pelvis was performed with 100 mL Omnipaque-350 intravenous contrast. Automated exposure control and iterative reconstruction technique were employed. The dose-length product was 1671.52 mGy-cm. COMPARISON: 11/02/2020 FINDINGS: Lung bases are clear. Heart size normal. No pericardial or pleural effusion. Liver, gallbladder, spleen, pancreas, bilateral adrenal glands and left kidney are normal. 4 mm low-attenuation likely cyst at the lower pole the right kidney. Suture line along the tip the cecum and a few adjacent surgical clips consistent with prior appendectomy. Bowels are otherwise unremarkable with no obstruction. Decompressed bladder, uterus and bilateral adnexa are unremarkable. No free intraperitoneal gas or fluid. No pathologically enlarged abdominal or pelvic lymphadenopathy. Chronic mild anterior wedging at T9-T11. 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 IMPRESSION: 1. No acute intra-abdominal/pelvic process. Reviewed, dictated and finalized at location A.
--- OUTSIDE RECORDS SUMMARY | 2025-07-15 17:15 | XMS_ITS | Encounter Summary ---
Author Organization [facility] Health Address [address] [place] [address] Care Team Providers Care Hot Mill Roller Name Role Phone Sandy Farnsworth MD Primary Care Provider [phone] Sandy Farnsworth MD Primary Care Provider [phone] Sandy Farnsworth MD Unavailable [phone] Sandy Farnsworth MD Unavailable [phone] Charlotte Espitia MD Primary Care Provider [facility] Primary Care Provider + Charlotte Espitia MD Primary Care Provider [facility] Primary Care Provider + Encounter Details Date Type Department Care Team (Late st Contact Info) Description 07/27/2013 [facility] Outpatient Visit CG DEFAULT [address] [place] [address] Unknown, Provider Social History Tobacco Use Types Packs/Day Years Used Date Smoking Tobacco: Never Alcohol Use Standard Drinks/Week Comments No 0 (1 standard drink = 0.6 oz pur e alcohol) Comments No Sex and Gender Information Value Date Recorded Sex Assigned at Not on file 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 Gender Identity Not on file Sexual Orientation Not on file documented as of this encounter Plan of Treatment Not on file documented as of this encounter Visit Diagnoses Not on filedocumented in this encounter Additional Health Concerns Infection Onset Date Last Indicated Resolved Time COVID-19 Under Investigation 08/08/2023 08/08/2023 08/08/2023 2:26 PM CDT documented as of this encounter Care Teams Hot Mill Roller Relationship Specialty Start Date End Date Sandy Farnsworth MD [address] [place] [phone] PCP - General 09/03/10 11/03/20 Sandy Farnsworth MD [address] [place] [phone] PCP - General 11/04/20 08/07/23 Sandy Farnsworth MD [address] [place] [phone] PCP - Pediatrics 09/01/09 Charlotte Espitia MD [address] [place], [place] [phone] PCP - General Internal Medicine 08/08/23 10/17/23 Jena Gutierrez, THREAD MILLING MACHINE SET UP OPERATOR-MANAGER ELECTRICAL [address] [place] [phone] PCP - General Nurse Practitioner 10/18/23 11/06/23 Charlotte Espitia MD [address], [place] [phone] PCP - General Internal Medicine 11/07/23 04/02/24 Jena Gutierrez, THREAD MILLING MACHINE SET UP OPERATOR-MANAGER ELECTRICAL [address] [place] [phone] PCP - General Nurse Practitioner 04/03/24 Sandy Farnsworth MD [address] [phone] 11/04/20 documented as of this encounter
--- OUTSIDE RECORDS SUMMARY | 2025-07-15 17:15 | XMS_ITS | Encounter Summary ---
Author Organization [facility] Health Address [address] [facility] [place] [address] Care Team Providers Care Hatchery Supervisor Name Role Phone Sandy Farnsworth MD Primary Care Provider [phone] Sandy Farnsworth MD Primary Care Provider [phone] Sandy Farnsworth MD Unavailable [phone] Sandy Farnsworth MD Unavailable [phone] Charlotte Espitia MD Primary Care Provider [facility] Primary Care Provider + Charlotte Espitia MD Primary Care Provider [facility] Primary Care Provider + Encounter Details Date Type Department Care Team (Late st Contact Info) Description 06/14/2014 [facility] Outpatient Visit EXTERNAL [facility] DEPT Unknown, Provider Social History Tobacco Use Types Packs/Day Years Used Date Smoking Tobacco: Never Alcohol Use Standard Drinks/Week Comments No 0 (1 standard drink = 0.6 oz pur e alcohol) Comments No Sex and Gender Information Value Date Recorded Sex Assigned at Not on file 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 Gender Identity Not on file Sexual Orientation Not on file documented as of this encounter Plan of Treatment Not on file documented as of this encounter Visit Diagnoses Not on filedocumented in this encounter Additional Health Concerns Infection Onset Date Last Indicated Resolved Time COVID-19 Under Investigation 08/08/2023 08/08/2023 08/08/2023 2:26 PM CDT documented as of this encounter Care Teams Hatchery Supervisor Relationship Specialty Start Date End Date Sandy Farnsworth MD [address] [place] [phone] PCP - General 09/03/10 11/03/20 Sandy Farnsworth MD [address] [place] [phone] PCP - General 11/04/20 08/07/23 Sandy Farnsworth MD [address] [place] [phone] PCP - Pediatrics 09/01/09 Charlotte Espitia MD [address] [place], [place] [phone] PCP - General Internal Medicine 08/08/23 10/17/23 Jena Gutierrez, HUMAN INTELLIGENCE-DISTRIBUTION ASSOCIATE [address] [phone] PCP - General Nurse Practitioner 10/18/23 11/06/23 Charlotte Espitia MD [address] [place], [place] [phone] PCP - General Internal Medicine 11/07/23 04/02/24 Jena Gutierrez, HUMAN INTELLIGENCE-DISTRIBUTION ASSOCIATE [address] [place] [address] [place] [phone] PCP - General Nurse Practitioner 04/03/24 Sandy Farnsworth MD [address] [place] [phone] 11/04/20 documented as of this encounter
--- OUTSIDE RECORDS SUMMARY | 2025-07-15 17:15 | XMS_ITS | Clinical Summary ---
Author Organization [facility] Care Team Providers Care Embalmer/Funeral Director Name Role Phone Unavailable Primary Care Provider Unavailabl e Social History Tobacco Use Types Packs/Day Years Used Date Smoking Tobacco: Never Assessed Comments Unknown Sex and Gender Information Value Date Recorded Sex Assigned at Not on file Legal Sex Female 3:18 PM CDT Gender Identity Not on file Sexual Orientation Not on file Plan of Treatment Health Maintenance Due Date Last Done Comments Hepatitis C Virus (HCV) Screening 2000 Human Papillomavirus (HPV) Immunization (2 - 2-dose series) 04/06/2014 10/07/2013 SARS-COV-2 Immunization ( season) 2024 Influenza Immunization (#1) 2025 Respiratory Syncytial Virus (RSV) Immunization (Adult) (1 - 1-dose 75+ series) 2075 Hepatitis B Immunization Completed 001, 2000, 2000 Pneumococcal Immunization Combined Aged Out 2001, 2000, 2000, Additional history exists No longer eligible based on patient's age to complete this topic Meningococcal Immunization (ACWY) Completed 07/01/2016, 05/28/2012 DTaP/Tdap/Td Immunization Discontinued 2020, 09/10/2010, 06/16/2005, Additional history exists TdaP Immunization Completed 12/01/2020, 09/10/2010 Rotavirus Immunization Aged Out No lo nger eligible based on patient's age to complete this topic
[2025-07-15 17:21] VITALS: BP 159/103; PULSE 79; RESP 16; TEMP 36.4; O2SAT 99
[2025-07-15 17:31] LABS: BEDSIDEPREGUCG Negative (Negative)
--- NOTE | 2025-07-15 17:43 | ED_ITS ---
HPI - Abdominal Pain General Chief Complaint: Abdominal Pain Stated Complaint: abdominal pain, N/V Time Seen by Provider: 07/15/25 17:28 History of Present Illness HPI narrative: Patient is a 25-year-old female who presents to the ER with a 2 day history of abdominal pain and diarrhea. She reports she has also had intermittent nausea and vomiting for the past week. Patient reports the vomiting takes place approximately 15-20 minutes after she eats. She reports her last menstrual period was June 19, 2025 and it was ?light for her. Patient reports she notice some pink tinged urine on her toilet paper but has not started her menstrual period yet this month. She reports she is not currently on control. Patient denies any urinary symptoms, constipation, or abnormal vaginal discharge. She reports she has also had some intermittent bilateral back pain. Patient endorses a history of an appendectomy, but denies any other medical history. Related Data Allergies Allergy/AdvReac Type Severity Reaction Status Date / Time codeine AdvReac Mild NAUSEA Verified 07/15/25 17:24 Review of Systems 2 Review of Systems: All systems reviewed & are unremarkable except as noted in HPI and below PMFSH Past Medical History Medical History Anxiety Patient denies significant medical history Surgical History Surgical History History of laparoscopic appendectomy 11/03/20 Family History Family History Sibling Asthma Grandparent Diabetes mellitus Grandparent History of blood clots Mother Hypertension Grandparent Hypertension Other Prostate carcinoma Social History Social History Smoking status: Never smoker Alcohol intake: never Substance use: never Substance use type: does not use Gender identity (if verbalized by the patient): Female Spiritual care concerns: No Exam 2 Narrative: GENERAL: Well appearing, obese, non-toxic, in no acute distress. HEAD: Normocephalic, atraumatic. NECK: Supple. No adenopathy, no masses. RESPIRATORY: Airway patent, respirations nonlabored. Clear to auscultation bilaterally, no rales, rhonchi, wheezing. CARDIOVASCULAR: Regular rate and rhythm without murmurs, rubs, or gallops. Peripheral pulses 2+ and equal bilaterally. ABDOMINAL: Soft, nontender, nondistended, no hepatosplenomegaly. Normoactive BS. MUSCULOSKELETAL: Moves all extremities. Strength/ROM intact without gross deformities. SKIN: Warm, dry, normal color. No rashes. NEURO: A&O X3. Speech clear. Cranial nerves II-XII intact. No ataxic movements. PSYCHIATRIC: Appropriate mood and affect. Normal interaction. Course Vital Signs Vital signs: Vital Signs Temperature 36.4 C 07/15/25 17:21 Pulse Rate 79 07/15/25 17:21 Respiratory Rate 16 07/15/25 17:21 Blood Pressure 159/103 H 07/15/25 17:21 Pulse Oximetry 99 07/15/25 17:21 Oxygen Delivery Room Air 07/15/25 17:21 Temperature 36.4 C 07/15/25 17:21 Pulse Rate 79 07/15/25 17:21 Respiratory Rate 16 07/15/25 17:21 Blood Pressure 159/103 H 07/15/25 17:21 Pulse Oximetry 99 07/15/25 17:21 Oxygen Delivery Room Air 07/15/25 17:21 MDM - Abdominal Pain MDM Narrative Medical decision making narrative: Patient is a 25-year-old female who presents to the ER with a 2 day history of abdominal pain and diarrhea. She reports she has also had intermittent nausea and vomiting for the past week. Patient reports the vomiting takes place approximately 15-20 minutes after she eats. She reports her last menstrual period was June 19, 2025 and it was ?light for her. Patient reports she notice some pink tinged urine on her toilet paper but has not started her menstrual period yet this month. She reports she is not currently on control. Patient denies any urinary symptoms, constipation, or abnormal vaginal discharge. She reports she has also had some intermittent bilateral back pain. Patient endorses a history of an appendectomy, but denies any other medical history. Labs Ordered: CBC, CMP, UA, lipase, beta hCG Imaging Ordered: CT abdomen pelvis Medications Ordered: Zofran 4 mg ODT Results: Her patient's CBC indicates white blood cell count of 13.0. Patient's CMP indicates creatinine of 0.58 and total protein of 8.8. Her hCG levels were negative. Patient's urinalysis indicates 3+ blood, trace leukocytes. Her CT scan shows no acute abnormalities. Diagnosis: gastroenteritis, drug-induced nausea and vomiting Patient Education/Shared MDM: Results of lab work and imaging shared with patient. She endorses improvement of symptoms following medication administration. Upon further discussion, patient reports she uses marijuana at home. Patient with advise to cease marijuana use. If her symptoms return she may use Reglan for nausea and capsaicin lotion for abdominal pain. Patient strongly advised to maintain hydration status upon discharge and follow-up with her PCP as soon as possible. She will be discharged home with a prescription for Reglan and capsaicin lotion. Strict return precautions provided. Patient verbalized understanding and is in agreement with plan. Vital signs stable at time of discharge. All questions answered. Differential Diagnosis Differential diagnosis: Likely abdominal pain, acute appendicitis, constipation, diverticulitis, gastroenteritis and other (Drug induced nausea and vomiting) Lab Data Attestation: I reviewed the patient's lab results. 07/15/25 18:15 07/15/25 18:15 Labs: Lab Results 07/15/25 07/15/25 07/15/25 Range/Units 17:26 17:29 18:15 WBC 13.0 H (4.5-10.0) K/mm3 RBC 4.81 (4.2-5.4) M/mm3 Hgb 14.6 (12.0-15.0) g/dL Hct 42.8 (37.0-47.0) % MCV 89.0 (80-100) fl MCH 30.4 (26-34) pg MCHC 34.1 (32-36) g/dl RDW 12.2 (11.5-14.5) % Plt Count 258 (150-375) k/mm3 MPV 10.4 (7.4-10.4) fl Immature Gran % (Auto) 0.4 (0-0.5) % Neut % (Auto) 62.0 (45.5-73.1) % Lymph % (Auto) 30.1 (18.3-44.2) % [place] % (Auto) 6.0 (2.6-8.5) % Eos % (Auto) 1.1 (0-4.4) % Baso % (Auto) 0.4 (0.2-1.2) % Lymph # (Auto) 3.91 H (0.9-3.2) K/mm3 [place] # (Auto) 0.8 H (0.1-0.6) K/mm3 Eos # (Auto) 0.1 (0-0.3) K/mm3 Baso # (Auto) 0.1 (0.0-0.1) K/mm3 Abs Immat Gran (auto) 0.05 H (0.00-0.031) K/mm3 Absolute Neuts (auto) 8.1 H (1.3-6.7) K/mm3 Absolute Nucleated RBC 0.000 (0.0-0.012) K/mm3 Nucleated RBC % 0.0 (0.0-0.2) % Sodium 138 (137-145) mmol/L Potassium 4.1 (3.4-5.0) mmol/L Chloride 106 (98-107) mmol/L Carbon Dioxide 22 (22-30) mmol/L Anion Gap 10 (4-12) mmol/L BUN 10 (7-17) mg/dL Creatinine 0.58 L (0.7-1.0) mg/dL Estim Creat Clear Calc 179 ml/min Estimated GFR > 60 (59 - ) Glucose 87 (65-110) mg/dL Calcium 9.3 (8.4-10.2) mg/dL Total Bilirubin 0.5 (0.2-1.3) mg/dL AST 29 (14-36) U/L ALT 20 (6-35) U/L Alkaline Phosphatase 79 (38-126) U/L Total Protein 8.8 H (6.3-8.2) g/dL Albumin 4.5 (3.5-5.1) g/dL Lipase 97 (23-300) U/L Beta HCG, Quant < 2.39 mIU/ML Urine Color Yellow (Yellow) Urine Appearance Clear (Clear) Urine pH 6.0 (5.0-9.0) Ur Specific [place] 1.019 (1.001-1.035) Urine Protein Negative (Negative) mg/dL Urine Glucose (UA) Negative (Negative) mg/dL Urine Ketones Negative (Negative) mg/dL Ur Blood (Man) 3+ H (Negative) Urine Nitrate Negative (Negative) Urine Bilirubin Negative (Negative) Urine Urobilinogen 0.2 (<2.0) mg/dL Leukocyte Esterase Rfl Trace H (Negative) LUH/UL Urine RBC >100 H (0-2) /hpf Urine WBC 6-10 H (0-3) /hpf Ur Squamous Epith Cells Occasional (Few) /hpf Urine Bacteria None seen /hpf Urine Casts 0-2 POC Urine HCG, Qual Negative (Negative) 07/15/25 Range/Units 18:15 WBC (4.5-10.0) K/mm3 RBC (4.2-5.4) M/mm3 Hgb (12.0-15.0) g/dL Hct (37.0-47.0) % MCV (80-100) fl MCH (26-34) pg MCHC (32-36) g/dl RDW (11.5-14.5) % Plt Count (150-375) k/mm3 MPV (7.4-10.4) fl Immature Gran % (Auto) (0-0.5) % Neut % (Auto) (45.5-73.1) % Lymph % (Auto) (18.3-44.2) % [place] % (Auto) (2.6-8.5) % Eos % (Auto) (0-4.4) % Baso % (Auto) (0.2-1.2) % Lymph # (Auto) (0.9-3.2) K/mm3 [place] # (Auto) (0.1-0.6) K/mm3 Eos # (Auto) (0-0.3) K/mm3 Baso # (Auto) (0.0-0.1) K/mm3 Abs Immat Gran (auto) (0.00-0.031) K/mm3 Absolute Neuts (auto) (1.3-6.7) K/mm3 Absolute Nucleated RBC (0.0-0.012) K/mm3 Nucleated RBC % (0.0-0.2) % Sodium (137-145) mmol/L Potassium (3.4-5.0) mmol/L Chloride (98-107) mmol/L Carbon Dioxide (22-30) mmol/L Anion Gap (4-12) mmol/L BUN (7-17) mg/dL Creatinine (0.7-1.0) mg/dL Estim Creat Clear Calc ml/min Estimated GFR (59 - ) Glucose (65-110) mg/dL Calcium (8.4-10.2) mg/dL Total Bilirubin (0.2-1.3) mg/dL AST (14-36) U/L ALT (6-35) U/L Alkaline Phosphatase (38-126) U/L Total Protein (6.3-8.2) g/dL Albumin (3.5-5.1) g/dL Lipase (23-300) U/L Beta HCG, Quant Cancelled mIU/ML Urine Color (Yellow) Urine Appearance (Clear) Urine pH (5.0-9.0) Ur Specific [place] (1.001-1.035) Urine Protein (Negative) mg/dL Urine Glucose (UA) (Negative) mg/dL Urine Ketones (Negative) mg/dL Ur Blood (Man) (Negative) Urine Nitrate (Negative) Urine Bilirubin (Negative) Urine Urobilinogen (<2.0) mg/dL Leukocyte Esterase Rfl (Negative) LUH/UL Urine RBC (0-2) /hpf Urine WBC (0-3) /hpf Ur Squamous Epith Cells (Few) /hpf Urine Bacteria /hpf Urine Casts POC Urine HCG, Qual (Negative) Imaging Data Attestation: I personally reviewed and interpreted this imaging study as follows: Radiologist's impression: ITS Impressions Abdomen/Pelvis CT 07/15/25 20:10 IMPRESSION: 1. No acute intra-abdominal/pelvic process. Discharge Plan Discharge Clinical Impression: Gastroenteritis, Drug-induced nausea and vomiting Patient Disposition: Home Condition: Stable Instructions: Antibiotic Form, Gastroenteritis (ED), Acute Nausea and Vomiting (ED), Cannabis Use Disorder (ED) Additional Instructions: Please return to the ER with any worsening symptoms. Follow-up with primary care provider as soon as possible. Take all medications as prescribed, including regularly scheduled medications. If your symptoms return please try a hot shower and capsaicin lotion to your abdomen. You may use Reglan to treat nausea and vomiting. Patient Language: Monegasque Prescriptions: New capsaicin 0.1 % cream 1 applic topical TID Qty: 60 0RF Rx Instructions: do not wash area for at least 30 min after application metoclopramide HCl [Reglan] 10 mg tablet 10 mg PO Q6H PRN (Reason: nausea and vomiting) Qty: 30 0RF Follow-up/Referrals: Matt,Jena Gresham APRN [Primary Care Provider, Unknown] Time of Disposition: 21:55
[2025-07-15] MEDS: ONDANSETRON HCL ODT 4 MG TABLET PO (17:53)
[2025-07-15 17:57] LABS: Add Urine Microscopic? YES; Appearance Urine Clear (Clear); Glucose Urine UA Negative (Negative); Leukocyte Esterase Ur Trace LEU/UL (Negative); Nitrate Urine Negative (Negative); Non Pathogenic Casts 0-2; Specific Grav Ur 1.019 (1.001-1.035)
--- OUTSIDE RECORDS SUMMARY | 2025-07-15 18:01 | XMS_ITS | Encounter Summary ---
Author Organization [facility] Health Address [address] [place] [address] Care Team Providers Care Stereoptician Name Role Phone Sandy Farnsworth MD Primary Care Provider [phone] Sandy Farnsworth MD Primary Care Provider [phone] Sandy Farnsworth MD Unavailable [phone] Sandy Farnsworth MD Unavailable [phone] Charlotte Espitia MD Primary Care Provider [facility] Primary Care Provider + Charlotte Espitia MD Primary Care Provider [facility] Primary Care Provider + Encounter Details Date Type Department Care Team (Late st Contact Info) Description 07/27/2013 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 Gender Identity Not on file Sexual Orientation Not on file documented as of this encounter Plan of Treatment Not on file documented as of this encounter Visit Diagnoses Not on filedocumented in this encounter Additional Health Concerns Infection Onset Date Last Indicated Resolved Time COVID-19 Under Investigation 08/08/2023 08/08/2023 08/08/2023 2:26 PM CDT documented as of this encounter Care Teams Stereoptician Relationship Specialty Start Date End Date Sandy Farnsworth MD [address] [place] [phone] PCP - General 09/03/10 11/03/20 Sandy Farnsworth MD [address] [place] [phone] PCP - General 11/04/20 08/07/23 Sandy Farnsworth MD [address] [place] [phone] PCP - Pediatrics 09/01/09 Charlotte Espitia MD [address] [place], [place] [phone] PCP - General Internal Medicine 08/08/23 10/17/23 Jena Gutierrez, COOKY MACHINE OPERATOR-NETWORK OPERATIONS PROJECT MANAGER [address] [place] [phone] PCP - General Nurse Practitioner 10/18/23 11/06/23 Charlotte Espitia MD [address], [place] [phone] PCP - General Internal Medicine 11/07/23 04/02/24 Jena Gutierrez, COOKY MACHINE OPERATOR-NETWORK OPERATIONS PROJECT MANAGER [address] [place] [phone] PCP - General Nurse Practitioner 04/03/24 Sandy Farnsworth MD [address] [phone] 11/04/20 documented as of this encounter
--- OUTSIDE RECORDS SUMMARY | 2025-07-15 18:01 | XMS_ITS | Encounter Summary ---
Author Organization 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 Gender Identity Not on file Sexual Orientation Not on file documented as of this encounter Plan of Treatment Not on file documented as of this encounter Visit Diagnoses Not on filedocumented in this encounter Additional Health Concerns Infection Onset Date Last Indicated Resolved Time COVID-19 Under Investigation 08/08/2023 08/08/2023 08/08/2023 2:26 PM CDT documented as of this encounter Care Teams Tool Polisher Relationship Specialty Start Date End Date Sandy Farnsworth MD [address] [place] [phone] PCP - General 09/03/10 11/03/20 Sandy Farnsworth MD [address] [place] [phone] PCP - General 11/04/20 08/07/23 Sandy Farnsworth MD [address] [place] [phone] PCP - Pediatrics 09/01/09 Charlotte Espitia MD [address] [place], [place] [phone] PCP - General Internal Medicine 08/08/23 10/17/23 Jena Gutierrez, VULCANIZER RUBBER PLATE-MANAGER PROPOSAL [address] [phone] PCP - General Nurse Practitioner 10/18/23 11/06/23 Charlotte Espitia MD [address] [place], [place] [phone] PCP - General Internal Medicine 11/07/23 04/02/24 Jena Gutierrez, VULCANIZER RUBBER PLATE-MANAGER PROPOSAL [address] [place] [address] [place] [phone] PCP - General Nurse Practitioner 04/03/24 Sandy Farnsworth MD [address] [place] [phone] 11/04/20 documented as of this encounter
--- OUTSIDE RECORDS SUMMARY | 2025-07-15 18:01 | XMS_ITS | Clinical Summary ---
Author Organization [facility] Care Team Providers Care Mathematician Research Name Role Phone Unavailable Primary Care Provider [...]
[2025-07-15 18:25] LABS: Hematocrit 42.8 % (37.0-47.0); Hemoglobin 14.6 g/dL (12.0-15.0); Immature Granulocyte Percent A 0.4 % (0-0.5); Lymphocytes Absolute Auto 3.91 K/mm3 (0.9-3.2); Mean Corpuscular HGB Conc 34.1 g/dl (32-36); Mean Corpuscular Hemoglobin 30.4 pg (26-34); Mean Corpuscular Volume 89.0 fl (80-100); Nucleated Red Blood Cells Absolute Auto 0.000 K/mm3 (0.0-0.012); Nucleated Red Blood Cells Perc 0.0 % (0.0-0.2); Platelet Count Result 258 k/mm3 (150-375); Red Blood Count 4.81 M/mm3 (4.2-5.4); White Blood Count 13.0 K/mm3 (4.5-10.0)
[2025-07-15 18:34] LABS: Alanine Aminotransferase 20 U/L (6-35); Albumin Level 4.5 g/dL (3.5-5.1); Alkaline Phosphatase 79 U/L (38-126); Anion Gap 10 mmol/L (4-12); Aspartate Amino Transferase 29 U/L (14-36); Bilirubin,Total 0.5 mg/dL (0.2-1.3); Blood Urea Nitrogen 10 mg/dL (7-17); Calcium 9.3 mg/dL (8.4-10.2); Carbon Dioxide 22 mmol/L (22-30); Chloride 106 mmol/L (98-107); Estimated CRCL calculation 179 ml/min; Estimated Glomerular Filt Rate > 60; Glucose 87 mg/dL (65-110); Lipase 97 U/L (23-300); Potassium 4.1 mmol/L (3.4-5.0); Sodium 138 mmol/L (137-145); Total Protein 8.8 g/dL (6.3-8.2)
[2025-07-15 18:50] LABS: Beta HCG Quantitative < 2.39 mIU/ML
== END 2025-07-15 22:03 | disposition home or self-care (01) ==
PROVIDERS: Emergency Medicine; Emergency Provider Registered Nurse; PCP Nurse Practitioner Family
DX: K52.9 Noninfective gastroenteritis and colitis, unspecified (principal); R11.2 Nausea with vomiting, unspecified; F12.90 Cannabis use, unspecified, uncomplicated; F41.9 Anxiety disorder, unspecified
CPT/HCPCS: 36415; 74177; 80053; 81001; 81025; 83690; 84702; 85025; 87086; 99284; A9270; Q9967